=== PATIENT | female | born 1965 | race African-American/Black ===

== ENCOUNTER 2017-02-25 06:42 | Emergency (ER) ==
[2017-02-25 07:01] VITALS: TEMP 96.4; BMI 23.8
[2017-02-25] MEDS ORDERED: STADOL IM STA (07:22)
--- NOTE | 2017-02-25 07:46 | CT ---
Exam: Head CT. Date: 02/25/2017. Comparison: None. HISTORY: Headache. TECHNIQUE: Helical scan of the brain was performed. FINDINGS: The calvarium is intact. The paranasal sinuses and mastoid air cells are clear. The brainstem and cerebellum are within normal limits. No abnormal intra or extra-axial fluid, mass or mass effect is present. There is no midline shift or hydrocephalus. No large vessel infarct or h emorrhage is identified. The adams-white interface is maintained. Impression: No acute intracranial findings.
--- NOTE | 2017-02-25 07:49 | CT ---
Exam: CT scan of the maxillofacial region. Date: February 25 2017. Comparison: None. HISTORY: Headaches. TECHNIQUE: Helical scan of the maxillofacial area was performed. FINDINGS: Frontal sinuses: Hypoplastic but clear. Ethmoid sinuses: There is minimal fluid in several posterior left ethmoid air cells. Maxillary sinuses: There is minimal mucoperiosteal thickening along the floor the left maxillary sin us. Sphenoid sinus: Clear Nasal fossa: The septum is midline. The ostiomeatal complexes are patent. The middle turbinates charles ve a normal orientation. There is extensive contact of the nasal septum and left middle and inferior turbinate mucosa. Caries are present within multiple teeth. No bony destructive changes are seen. The mastoid air cells are clear. Impression: There is scattered opacification of several posterior left ethmoid air cells with minima l mucoperiosteal thickening along the floor of the left maxillary sinus. Findings could represent ch ronic and/or acute sinusitis. Extensive contact of the septum and left middle and inferior turbinate mucosa. Dental caries; if further evaluation is needed then a dental consult would be suggested.
--- NOTE | 2017-02-25 08:37 | ED.PDOC ---
General ED Provider: Dr. ARNULFO AL Chief Complaint: Headache Stated Complaint: Patient is a 52 year old female who comes to the Er with Heache for one week. Got some relief with Ibuprufen yeterday got better but came back today. Headache is mostly on the right frontal area. Also states he eyes get red once a month for 3 days. States they area red today. States does not have a doctor. Time Seen by Physician: 07:00 Mode of Arrival: Walk-In Information Source: Patient Exam Limitations: No limitations Nursing and Triage Documentation Reviewed and Agree: Yes Reviewed sepsis parameters & appropriate labs ordered?: Yes System Inflammatory Response Syndrome: Not Applicable Sepsis Protocol: For patient's 13 years and over: Temp is 96.8 and below OR 101 and greater Pulse >90 BPM Resp >20/minute Acutely Altered Mental Status Are patient's symptoms suggestive of a new infection, such as: -Pneumonia -Skin, Soft Tissue -Endocarditis -UTI -Bone, Joint Infection -Implantable Device -Acute Abdominal Infection -Wound Infection -Meningitis -Blood Stream Catheter Infection -Unknown System Inflammatory Response Syndrome: Not Applicable Review of Systems - Review Of Systems Constitutional: Reports: No symptoms Eyes: Reports: Drainage, Pain Ears, Nose, Mouth, Throat: Reports: No symptoms Respiratory: Reports: No symptoms Cardiac: Reports: No symptoms GI: Reports: No symptoms : Reports: No symptoms Musculoskeletal: Reports: No symptoms Skin: Reports: No symptoms Neurological: Reports: Anxiety, Headache Endocrine: Reports: No symptoms Hematologic/Lymphatic: Reports: No symptoms All Other Systems: Reviewed and Negative Past Medical History - Past Medical History Previously Healthy: Yes Endocrine: Reports: None Cardiovascular: Reports: Hypertension Respiratory: Reports: None Hematological: Reports: Anemia Gastrointestinal: Reports: None Genitourinary: Reports: None Neuro/Psych: Reports: None Musculoskeletal: Reports: None Cancer: Reports: None Last Menstrual Period: OVER A YEAR AGO, DID HAVE SPOTTING A WEEK AGO - Surgical History General Surgical History: Reports: Unknown - Family History Family History: Reports: Unknown - Social History Smoking Status: Current every day smoker, Light tobacco smoker Hx Substance Use: Yes ("DRUGS" IN THE PAST) Alcohol Screening: Occasionally - Immunizations Tetanus Shot up to Date: Yes Physical Exam - Physical Exam Appearance: Ill-appearing Ill-appearing: Mild Pain Distress: Severe Eyes: SHAKIRA, EOMI, Conjunctiva clear ENT: Ears normal, Nose normal, Oropharynx normal Neck: Supple Respiratory: Airway patent, Breath sounds clear, Breath sounds equal, Respirations nonlabored Cardiovascular: RRR, Pulses normal, No rub, No murmur Musculoskeletal: Normal strength, ROM intact, No edema, No calf tenderness Skin: Warm, Dry, Normal color Neurological: Sensation intact, Motor intact, Reflexes intact, Cranial nerves intact, Alert, Oriented Psychiatric: Anxious Critical Care Note - Critical Care Note Total Time (mins): 0 Course - Course Orders, Labs, Meds: Orders Category Date Time Status Butorphanol Tartrate [Stadol] MEDS 02/25/17 07:22 Discontinued 1 mg IM ONCE STA CT HEAD W/O CONTRAST Stat RADS 02/25/17 07:[address] SINUSES W/O CONTRAST Stat RADS 02/25/17 07:22 Completed Medications Discontinued Medications Generic Name Dose Route Start Last Admin Trade Name Freq PRN Reason Stop Dose Admin Butorphanol Tartrate 1 mg 02/25/17 07:22 02/25/17 07:27 Stadol IM 02/25/17 07:23 1 mg ONCE STA Administration Vital Signs: Temp Pulse Resp BP Pulse Ox 02/25/17 08:46 153/76 H 02/25/17 06:44 96.4 F L 82 20 166/92 H 98 Departure - Departure Time of Disposition: 08:40 Disposition: HOME SELF-CARE Discharge Problem: Headache, Dental caries, Acute bacterial conjunctivitis of both eyes Acute sinusitis Qualifiers: Sinusitis location: maxillary Recurrence: non-recurrent Qualified Code(s): J01.00 - Acute maxillary sinusitis, unspecified Instructions: Dental Caries (GEN), Sinusitis (ED), Acute Headache (ED), Conjunctivitis (ED) Condition: Fair Pt referred to PMD for follow-up: Yes IPMP verified?: No Additional Instructions: Follow up with The clinic to get established. Call [phone], extension [phone] to schedule appointment Take medications as prescribed for sinusitis for dental caries. Please find a dentist, Ophthalmologists, next week Prescriptions: Gentamicin Sulfate Opth [Gentak Opth Monica] 1 drop OP Q4HR #10 drops Hydrocodone/Acetaminophen [Rew 5-325 Tablet] 1 tab PO Q6HR PRN #12 tablet PRN Reason: PAIN Amoxicillin/Potassium Clav [Augmentin 875-125 mg Tab] 1 tab PO Q12HR #30 tablet Ibuprofen [Motrin] 600 mg PO Q6H PRN #30 tablet PRN Reason: Analgesia Allergies/Adverse Reactions: Allergies No Known Drug Allergies Adverse Reaction (Verified 02/25/17 06:55) Home Medications: Ambulatory Orders Amoxicillin/Potassium Clav [Augmentin 875-125 mg Tab] 1 tab PO Q12HR #30 tablet 02/25/17 Gentamicin Sulfate Opth [Gentak Opth Monica] 1 drop OP Q4HR #10 drops 02/25/17 Hydrocodone/Acetaminophen [Rew 5-325 Tablet] 1 tab PO Q6HR PRN #12 tablet Ibuprofen [Motrin] 600 mg PO Q6H PRN #30 tablet 02/25/17 Disposition Discussed With: Patient
[2017-02-25 08:47] VITALS: BP 153/76
== END 2017-02-25 09:10 | disposition home or self-care (01) ==
LOC: ED 06:42
DX: J01.00 Acute maxillary sinusitis, unspecified (principal); K02.7 Dental root caries; H10.33 Unspecified acute conjunctivitis, bilateral
CPT/HCPCS: 96372; 99283

== ENCOUNTER 2017-05-12 08:10 | Outpatient (CLI) ==
--- NOTE | 2017-05-12 09:21 | DI ---
EXAM: Chest two view, frontal and lateral views. HISTORY: Iridocyclitis. COMPARISON: None available. FINDINGS: The heart size is normal. There is no pulmonary vascular congestion. The lungs are clear . No pleural effusion or pneumothorax is seen. No acute osseous abnormality identified. IMPRESSION: No acute cardiopulmonary process.
== END 2017-05-12 08:11 | disposition home or self-care (01) ==
LOC: LAB 08:10
PROVIDERS: ATTEND Family Medicine
DX: H20.9 Unspecified iridocyclitis (principal); H57.13 Ocular pain, bilateral
CPT/HCPCS: 36415; 80053; 85025; 85651; 86140; 86430; 86592